=== PATIENT | female | born 1945 | race Caucasian/White ===

== ENCOUNTER 2020-04-19 11:30 | Emergency (ER) | payer MEDICARE, OTHER ==
[~2020-04-19 11:30] MED LIST: ALPR.25T PO; CALC-78 PO; CHOL4PAC3 PO; CLN.1T PO; DILT360C30 PO; DOXY100C2 PO; FISH OIL 1,2001 EAC1 PO; HYDR-3583 PO; HYDR1CAP2 PO; MULT-608 PO; OMEP20CA6 PO; WRF5T PO
[2020-04-19] MEDS ORDERED: NS IV 1000 ML 1,000 ML IV SCH (12:02)
[2020-04-19] MEDS ORDERED: ACETAMINOPHEN 500 MG TAB (TYLENOL) PO ONE (12:15)
--- NOTE | 2020-04-19 12:25 | Diagnostic Imaging Report ---
EXAM: CHEST 1 VIEW AP/PA ONLY INDICATION: Shortness of breath. COMPARISON: None. FINDINGS: Cardiomegaly. Diffuse prominence of interstitium. Postoperative changes overlying the right lung base. No pleural effusion or pneumothorax. No acute osseous findings. IMPRESSION: 1. Cardiomegaly. 2. Prominence of interstitium could be due to interstitial edema versus atypical infectious process. 3. Postoperative changes overlying the right lung base. Dictated by: Dictated on workstation # [id number]
--- NOTE | 2020-04-19 12:29 | ED General ---
General Chief Complaint: General Problems/Pain Stated Complaint: SOA,WEAKNESS,DIARRHEA Nursing Triage Note: Has been having weakness, diarrhea, nausea x 1 week, cough x 2 days and headache. Is having weakness and shortness of breath with activity. Denies fevers. has been diagnosed with COVID 19. Nursing Sepsis Screen: No Definite Risk History of Present Illness Date Seen by Provider: Apr 19, 2020 Time Seen by Provider: 11:45 Initial Comments The patient is a 75-year-old female with a history of atrial fibrillation on warfarin and Cardizem. She has no history of chronic respiratory disease and never smoked. She presents for evaluation of about one week of symptoms including fatigue, malaise, nausea with diminished appetite, mild generalized headache, nasal congestion, cough and mild shortness of breath. has been diagnosed with COVID-19 and is currently hospitalized. Ms. Melton has not herself been tested for COVID. She reports associated diarrhea which is quite chronic, but she thinks slightly worse than usual in association with her other symptoms. She denies associated fevers, vomiting, atrest or conversational dyspnea, chest pain of any kind, abdominal pain, flank pain, back pain, dysuria or hematuria. Patient is alert and pleasantly and appropriately interactive and in absolutely no acute distress with appropriate vital signs including oxygenation upon initial evaluation here in the emergency department. Oxygen saturation on the monitor ranges between 95 and 97% on room air. Patient states symptoms are no worse than they have been today and the only reason that she came to the emergency department for evaluation was that her children have been encouraging her to "get checked out." Allergies and Home Medications Allergies Coded Allergies: dronedarone (Verified Allergy, Unknown, 04/19/20) lisinopril (Unverified Allergy, Unknown, LEG AND FEET CRAMPS, 04/19/20) metoprolol (Unverified Allergy, Unknown, SOB, WHEEZES, 04/19/20) propafenone (Verified Allergy, Unknown, heart beat too fast, 04/19/20) Home Medications Alprazolam 0.25 Mg Tablet, 1 TAB PO NEEDED, (Reported) Calcium Carbonate/Vitamin D3 1 Each Tablet, 2 EACH PO DAILY, (Reported) Cholestyramine/Aspartame 4 Gm Packet, 4 GM PO NEEDED, (Reported) Clonidine Hcl 0.1 Mg Tab, 1 EACH PO BID, (Reported) Diltiazem Hcl 360 Mg Capsule.sa, 1 EACH PO DAILY, (Reported) Doxycycline Hyclate 100 Mg Capsule, 1 EACH PO DAILY, (Reported) Hydrocodone Bit/Acetaminophen 1 Each Capsule, 1 EACH PO NEEDED, (Reported) Hydrocodone Bit/Acetaminophen 1 Tab Tab, 1-2 EA PO Q4HR PRN, (Reported) Multivitamins 1 Tab Tablet, 1 TAB PO DAILY, (Reported) [place]-3 Fatty Acids/Fish Oil 1 Each Capsule, 2 EACH PO DAILY, (Reported) Omeprazole 20 Mg Capsule.dr, 20 MG PO DAILY, (Reported) Warfarin Sod 5 Mg Tab, 5 MG PO DAILY, (Reported) Patient Home Medication List Home Medication List Reviewed: Yes Review of Systems Review of Systems Constitutional: see HPI All Other Systems Reviewed Negative Unless Noted: Yes (Negative excepted noted.) Past Yulplrk-Uivtbz-Cbyycf Hx Past Med/Social Hx: Reviewed Nursing Past Med/Soc Hx Patient Social History Alcohol Use: Denies Use Recreational Drug Use: No Smoking Status: Never a Smoker 2nd Hand Smoke Exposure: No Recent Foreign Travel: No Contact w/Someone Who Travel: No Recent Infectious Disease Expo: Yes ( has covid 19) Recent Hopitalizations: No Physical Abuse: No Sexual Abuse: No Mistreated: No Fear: No Past Medical History Surgeries: No Respiratory: No Cardiac: Yes Atrial Fibrillation, Hypertension Neurological: No Reproductive Disorders: No Genitourinary: No Gastrointestinal: Yes Gastroesophageal Reflux Musculoskeletal: No Endocrine: No HEENT: No Cancer: Yes Breast Did You Recieve Any Treatments: Yes Psychosocial: Yes Depression Integumentary: No Blood Disorders: No Family Medical History Reviewed Nursing Family Hx Physical Exam Vital Signs Vital Signs - First Documented 04/19/20 11:49 Temp 36.0 Pulse 56 Resp 18 B/P (MAP) 127/65 (85) Pulse Ox 97 Capillary Refill : Less Than 3 Seconds Height, Weight, BMI Height: '" Weight: lbs. oz. kg; BMI Method: General Appearance: No Apparent Distress Comments This is a well-appearing elderly female appearing nontoxic and in no acute distress. Head is normocephalic and atraumatic. Neck is supple and nontender. Oropharynx is moist. Lungs are clear to auscultation at all stations. There is a normal S1 and S2 without rubs or gallops and capillary refill is appropriate, less than 2 seconds globally. Abdomen is soft, nontender and nondistended. Skin is warm and dry without cyanosis, clubbing or edema. Psychiatrically, the patient demonstrates appropriate mood and affect and is a lert. Progress/Results/Core Measures Suspected Sepsis Recent Fever Within 48 Hours: No Infection Criteria Present: Suspected New Infection New/Unexplained Altered Menta: No Sepsis Screen: No Definite Risk SIRS Temperature: Pulse: 56 Respiratory Rate: 18 Laboratory Tests 04/19/20 12:15: White Blood Count 3.5L Blood Pressure 127 /65 Mean: 85 Laboratory Tests 04/19/20 12:15: Creatinine 1.09, INR Comment 1.7H, Platelet Count 169, Total Bilirubin 0.5 Results/Orders Lab Results Laboratory Tests Test 04/19/20 12:15 04/19/20 12:42 Range/Units White Blood Count 3.5 L 4.3-11.0 10^3/uL Red Blood Count 5.12 4.35-5.85 10^6/uL Hemoglobin 13.5 11.5-16.0 G/DL Hematocrit 40 35-52 % Mean Corpuscular Volume 78 L 80-99 FL Mean Corpuscular Hemoglobin 26 25-34 PG Mean Corpuscular Hemoglobin Concent 34 32-36 G/DL Red Cell Distribution Width 15.7 H 10.0-14.5 % Platelet Count 169 130-400 10^3/uL Mean Platelet Volume 9.8 7.4-10.4 FL Immature Granulocyte % (Auto) 0 % Neutrophils (%) (Auto) 56 42-75 % Lymphocytes (%) (Auto) 32 12-44 % Monocytes (%) (Auto) 12 0-12 % Eosinophils (%) (Auto) 0 0-10 % Basophils (%) (Auto) 0 0-10 % Neutrophils # (Auto) 1.9 1.8-7.8 X 10^3 Lymphocytes # (Auto) 1.1 1.0-4.0 X 10^3 Monocytes # (Auto) 0.4 0.0-1.0 X 10^3 Eosinophils # (Auto) 0.0 0.0-0.3 10^3/uL Basophils # (Auto) 0.0 0.0-0.1 10^3/uL Immature Granulocyte # (Auto) 0.0 0.0-0.1 10^3/uL Prothrombin Time 20.4 H 12.2-14.7 SEC INR Comment 1.7 H 0.8-1.4 Activated Partial Thromboplast Time 41 H 24-35 SEC Sodium Level 136 135-145 MMOL/L Potassium Level 4.2 3.6-5.0 MMOL/L Chloride Level 103 98-107 MMOL/L Carbon Dioxide Level 22 21-32 MMOL/L Anion Gap 11 5-14 MMOL/L Blood Urea Nitrogen 19 H 7-18 MG/DL Creatinine 1.09 0.60-1.30 MG/DL Estimat Glomerular Filtration Rate 49 BUN/Creatinine Ratio 17 Glucose Level 132 H 70-105 MG/DL Calcium Level 8.3 L 8.5-10.1 MG/DL Corrected Calcium 8.4 L 8.5-10.1 MG/DL Total Bilirubin 0.5 0.1-1.0 MG/DL Aspartate Amino Transf (AST/SGOT) 22 5-34 U/L Alanine Aminotransferase (ALT/SGPT) 13 0-55 U/L Alkaline Phosphatase 69 40-136 U/L Troponin I < 0.30 <0.30 NG/ML C-Reactive Protein 1.76 H <0.50 MG/DL Total Protein 6.6 6.4-8.2 GM/DL Albumin 3.9 3.2-4.5 GM/DL Urine Color YELLOW Urine Clarity SLT CLOUDY Urine pH 6.0 5-9 Urine Specific [place] 1.025 H 1.016-1.022 Urine Protein 2+ H NEGATIVE Urine Glucose (UA) NEGATIVE NEGATIVE Urine Ketones NEGATIVE NEGATIVE Urine Nitrite NEGATIVE NEGATIVE Urine Bilirubin NEGATIVE NEGATIVE Urine Urobilinogen 0.2 < = 1.0 MG/DL Urine Leukocyte Esterase TRACE H NEGATIVE Urine RBC (Auto) TRACE H NEGATIVE Urine RBC NONE /HPF Urine WBC 25-50 H /HPF Urine Squamous Epithelial Cells 5-10 /HPF Urine Crystals NONE /LPF Urine Bacteria LARGE H /HPF Urine Casts PRESENT /LPF Urine Hyaline Casts 0-2 H /LPF Urine Mucus NEGATIVE /LPF Urine Culture Indicated YES Micro Results Microbiology 04/19/20 Influenza Types A,B Antigen (DADA) - Final, Complete My Orders Orders - REINA MCMAHAN MD Cbc With Automated Diff (04/19/20 12:02) Comprehensive Metabolic Panel (04/19/20 12:02) Troponin I Fs (04/19/20 12:02) Ekg Tracing (04/19/20 12:02) Chest 1 View Ap/Pa Only (04/19/20 12:02) Ua Culture If Indicated (04/19/20 12:02) Crp Fs (04/19/20 12:02) Coronavirus Sars-Cov-2 So 2018 (04/19/20 12:02) Influenza A And B Antigens (04/19/20 12:02) Acetaminophen Tablet (Tylenol Tablet) (04/19/20 12:15) Ed Iv/Invasive Line Start (04/19/20 12:02) Ns Iv 1000 Ml (Sodium Chloride 0.9%) (04/19/20 12:02) Protime With Inr (04/19/20 12:33) Partial Thromboplastin Time (04/19/20 12:33) Urine Culture (04/19/20 12:42) Medications Given in ED Current Medications Medications Dose Ordered Sig/Jonatan Route Start Time Stop Time Status Last Admin Dose Admin Acetaminophen 1,000 mg ONCE ONCE PO 04/19/20 12:15 04/19/20 12:16 DC 04/19/20 12:18 1,000 MG Vital Signs/I&O 04/19/20 11:49 Temp 36.0 Pulse 56 Resp 18 B/P (MAP) 127/65 (85) Pulse Ox 97 Capillary Refill : Less Than 3 Seconds Blood Pressure Mean: 85 Progress Note : Time: 12:30 Progress Note Well-appearing elderly female without chronic lung disease who presents for evaluation of a symptom constellation that likely represents COVID-19 infection. Vital signs reassuring. Given age, we will check workup as noted and will then reevaluate, but anticipate likely discharge home if workup is reassuring. Patient understands and agrees with this plan of care. 1305: Workup unremarkable and reassuring aside from evidence of urinary tract infection which we will treat with cefdinir. Mild interstitial findings on chest x-ray; cefdinir should provide reasonable coverage for bacterial pulmonary processes. We'll proceed with discharge home as per plan above. Patient is to quarantine at least until her COVID test comes back negative and she feels better. I have advised her purchase a pulse oximeter for home use to monitor her oxygen levels. She understands if she feels worse is that of better or develops other new symptoms of concern that she will need to return to the emergency department immediately for reevaluation. All questions are answered. ECG EKG : Comment Sinus rhythm, right bundle branch block, rate 53, no acute ST elevation or depression, SD 193, QRS 153, QTC 488, EP interpretation. Diagnostic Imaging Comments NAME: YURI MELTON [facility] REC#: [id number] PT STATUS: REG ER : 1945 PHYSICIAN: REINA MCMAHAN MD ADMIT DATE: 04/19/20/ER FS Draft Date of Exam:04/19/20 CHEST 1 VIEW AP/PA ONLY EXAM: CHEST 1 VIEW AP/PA ONLY INDICATION: Shortness of breath. COMPARISON: None. FINDINGS: Cardiomegaly. Diffuse prominence of interstitium. Postoperative changes overlying the right lung base. No pleural effusion or pneumothorax. No acute osseous findings. IMPRESSION: 1. Cardiomegaly. 2. Prominence of interstitium could be due to interstitial edema versus atypical infectious process. 3. Postoperative changes overlying the right lung base. Dictated on workstation # [id number] Dict: 04/19/20 1221 Trans: 04/19/20 1224 [facility] [id number] Interpreted by: JOSHUA ALVAREZ MD Electronically signed by: Departure Impression Primary Impression: Person under investigation for COVID-19 Additional Impressions: Viral syndrome Acute cystitis Qualified Codes: N30.00 - Acute cystitis without hematuria Disposition: HOME, SELF-CARE Condition: Improved Departure-Patient Inst. Referrals: ORIN URBAN MD (PCP/Family) Primary Care Physician Patient Instructions: Coronavirus Disease 2019 (COVID-19) (DC), Viral Syndrome (DC), Urinary Tract Infection, Adult (DC) Add. Discharge Instructions: Follow-up very closely with your primary care physician at least by phone or telemedicine visit within the next 2-4 days for a reevaluation of your symptoms and a discussion of next best steps in care. As we discussed, I would like you to purchase a pulse oximeter to monitor your oxygen levels at home; your oxygen level should be at or above 92% at all times.. Pulse oximeters are available from the pharmacy or you may order from [employer] or other convenient online re tailer. Drink plenty of fluids and get plenty of rest. Take Tylenol as stated for discomfort. Use Zofran as needed for any nausea. Take the cefdinir antibiotic for urinary tract infection. Return to the emergency department right away with worsening symptoms of any kind or with any other new symptoms of concern. Scripts Ondansetron (Ondansetron Odt) 4 Mg Tab.rapdis 4 MG PO Q8H for Nausea, #12 TAB Prov: REINA MCMAHAN MD 04/19/20 Cefdinir (Cefdinir) 300 Mg Capsule 300 MG PO BID, #14 CAP 0 Refills Prov: REINA MCMAHAN MD 04/19/20 REINA MCMAHAN MD Apr 19, 2020 12:29
[2020-04-19 12:30] LABS: BASOPHILS % (AUTO) 0 % (0-10); EOSINOPHILS % (AUTO) 0 % (0-10); HEMATOCRIT 40 % (35-52); HEMOGLOBIN 13.5 G/DL (11.5-16.0); LYMPHOCYTES % (AUTO) 32 % (12-44); MEAN CORPUSCULAR HEMOGLOBIN 26 PG (25-34); MEAN CORPUSCULAR HGB CONC 34 G/DL (32-36); MEAN CORPUSCULAR VOLUME 78 FL (80-99); MEAN PLATELET VOLUME 9.8 FL (7.4-10.4); MONOCYTES % (AUTO) 12 % (0-12); NEUTROPHILS % (AUTO) 56 % (42-75); PLATELET COUNT 169 10^3/uL (130-400); WHITE BLOOD COUNT 3.5 10^3/uL (4.3-11.0)
[2020-04-19 12:31] LABS: LYMPHOCYTES # (AUTO) 1.1 X 10^3 (1.0-4.0); MONOCYTES # (AUTO) 0.4 X 10^3 (0.0-1.0); NEUTROPHILS # (AUTO) 1.9 X 10^3 (1.8-7.8)
[2020-04-19 12:51] LABS: ALANINE AMINOTRANSFERASE 13 U/L (0-55); ALKALINE PHOSPHATASE 69 U/L (40-136); BILIRUBIN,TOTAL 0.5 MG/DL (0.1-1.0); BUN/CREATININE RATIO 17; CALCIUM 8.3 MG/DL (8.5-10.1); CARBON DIOXIDE 22 MMOL/L (21-32); CHLORIDE 103 MMOL/L (98-107); CREATININE SERUM 1.09 MG/DL (0.60-1.30); GFR ESTIMATED 49; GLUCOSE 132 MG/DL (70-105); POTASSIUM 4.2 MMOL/L (3.6-5.0); SODIUM 136 MMOL/L (135-145)
[2020-04-19 12:52] LABS: ALBUMIN 3.9 GM/DL (3.2-4.5); TOTAL PROTEIN 6.6 GM/DL (6.4-8.2)
[2020-04-19 12:57] LABS: INR 1.7 (0.8-1.4); PROTHROMBIN TIME PATIENT 20.4 SEC (12.2-14.7)
[2020-04-19 13:05] LABS: BILIRUBIN,URINE NEGATIVE (NEGATIVE); CLARITY,URINE SLT CLOUDY; COLOR,URINE YELLOW; GLUCOSE, URINE (UA) NEGATIVE (NEGATIVE); KETONES,URINE NEGATIVE (NEGATIVE); NITRITE,URINE NEGATIVE (NEGATIVE); PROTEIN,URINE 2+ (NEGATIVE)
[2020-04-19 13:06] LABS: BACTERIA,URINE LARGE /HPF; HYALINE CASTS, URINE 0-2 /LPF; LEUKOCYTE ESTERASE ,URINE TRACE (NEGATIVE); WBC,URINE 25-50 /HPF
[2020-04-19] MEDS ORDERED: ONDA4TAB11 PO (13:29)
[2020-04-19] MEDS ORDERED: CEFD300C3 PO (13:29)
[2020-04-19 14:00] VITALS: BP 119/59
== END 2020-04-19 14:01 | disposition home or self-care (01) ==
LOC: EDUNIT# 11:30 → ER FS 11:32
DX: U07.1 COVID-19 (principal); N30.00 Acute cystitis without hematuria; K21.9 Gastro-esophageal reflux disease without esophagitis; I10 Essential (primary) hypertension; Z85.3 Personal history of malignant neoplasm of breast; Z88.8 Allergy status to other drugs, medicaments and biological substances; Z79.01 Long term (current) use of anticoagulants
CPT/HCPCS: 36415; 71045; 80053; 81000; 84484; 85025; 85610; 85730; 86141; 87077; 87088; 87804 ×2; 99284; U0002; 87635

== ENCOUNTER → 2020-10-22 | Outpatient (CLI) | payer MEDICARE, OTHER ==
[~2020-10-22] MED LIST changes: +CEFD300C3 PO; +ONDA4TAB11 PO
== END ==
LOC: ORTHO 10:51
PROVIDERS: ATTEND Orthopaedic Surgery
DX: M25.519 Pain in unspecified shoulder (principal)
CPT/HCPCS: 99203

== ENCOUNTER → 2020-10-28 | Outpatient (CLI) | payer MEDICARE, OTHER ==
--- NOTE | 2020-10-28 16:24 | Diagnostic Imaging Report ---
INDICATION: Postmenopausal screening COMPARISON: Baseline FINDINGS: AP Spine L1-L4: [BMD (g/cm2): 1.198] [T-Score: 0.0] [Z-Score: 1.0] [BMD Previous: na] [BMD % Change: na] LT Hip Neck: [BMD (g/cm2): 0.879] [T-Score: -1.1] [Z-Score: 0.4] LT Hip Total: [BMD (g/cm2):0.883] [T-Score:-1.0] [Z-Score: 0.3] [BMD Previous: na] [BMD % Change: na] RT Hip Neck: [BMD (g/cm2):na] [T-Score:na] [Z-Score:na] RT Hip Total: [BMD (g/cm2):na] [T-score:na] [Z-Score:na] [BMD Previous:na] [BMD % Change:na] *Indicates significant change from prior examination based on 95% confidence level. World Health Organization criteria for BMD interpretation classify patients as Normal (T-score at or above -1.0), Osteopenic (T-score between -1.0 and -2.5) or Osteoporotic (T-score at or below -2.5). LIMITATIONS AND MODIFICATION: None. FRACTURE RISK (FRAX SCORE): The ten year probability of (%): Major Osteoporotic Fracture: [10.5] Hip Fracture: [1.8] IMPRESSION: 1. Osteopenia (Low bone mass). 2. Baseline examination. 3. See below National Osteoporosis Foundation guidelines on when to potentially initiate pharmacologic therapy. Based on the National Osteoporosis Foundation Guidelines, pharmacologic treatment should be initiated in any of the following, unless clinical conditions suggest otherwise: * Any patient with prior fragility fracture of the hip or vertebrae. A spine fracture indicates 5X risk for subsequent spine fracture and 2X risk for subsequent hip fracture. * Osteoporosis (T-score <-2.5). * Postmenopausal women and men age 50 and older with low bone mass/osteopenia (T-score between -1.0 and -2.5) by DXA and 10-year major osteoporotic fracture greater than 20% or a 10-year probability of hip fracture greater than 3%. These fracture risks are supplied above in the FRAX score, if applicable. * Clinician judgement and/or patient preferences may indicate treatment for people with 10-year fracture probabilities above or below these levels. Dictated by: Dictated on workstation # [id number]
== END ==
LOC: RAD 13:38
PROVIDERS: ATTEND Nurse Practitioner
DX: M85.80 Other specified disorders of bone density and structure, unspecified site (principal); Z78.0 Asymptomatic menopausal state
CPT/HCPCS: 77080